=== PATIENT | male | born 1950 | race Caucasian/White ===

== ENCOUNTER 2018-06-02 09:09 | Inpatient (IN) | payer MEDICARE, MEDICAID ==
[~2018-06-02] VITALS: Ht 193 cm; Wt 105.7 kg
--- NOTE | 2018-06-02 09:40 | NUR ---
PT PRESENTED TO ED FROM [facility] FOR HYPERTENSION. PT STATES HE WAS AT [facility] ON 05/30 AND HAS BEEN THERE SINCE THEN. PT STILL WITH HIGH BLOOD PRESSURE. PT A&OX4. PT PLACED ON BP AND CONT. PULSE OXIMETER. ASSESSEMT COMPLETED. AWAITING MD.
[2018-06-02] MEDS ORDERED: ALBUTEROL/IPRATROPIUM 2.5MG/0.5MG, 3 ML NPPB ONE (10:00)
[2018-06-02] MEDS ORDERED: ALBUTEROL/IPRATROPIUM 2.5MG/0.5MG, 3 ML ONE (10:11)
[2018-06-02 10:59] LABS: BASOPHILS # (AUTO) 0.02 x10^3/uL (0-0.1); BASOPHILS % (AUTO) 0 % (0-1); EOSINOPHILS # (AUTO) 0.09 x10^3/uL (0-0.4); EOSINOPHILS % (AUTO) 1 % (1-7); LYMPHOCYTES # (AUTO) 1.41 x10^3/uL (1-3.4); LYMPHOCYTES % (AUTO) 17 % (22-44); MD NO; MEAN CORPUSCULAR HEMOGLOBIN 32.3 pg (27.5-34.5); MEAN CORPUSCULAR HGB CONC 32.3 g/dL (33.2-36.2); MEAN CORPUSCULAR VOLUME 100.2 fL (81-97); MEAN PLATELET VOLUME 8.2 fL (7.4-10.4); MONOCYTES % (AUTO) 7 % (2-9); NEUTROPHILS # (AUTO) 6.05 x10^3/uL (1.8-6.8); NEUTROPHILS % (AUTO) 74 % (42-75); PLATELET COUNT 199 x10^3/uL (130-400); RED BLOOD COUNT 4.72 x10^6/uL (4.38-5.82); RED CELL DISTRIBUTION WIDTH 15.5 % (9.4-14.8)
--- NOTE | 2018-06-02 11:00 | NUR ---
pt awaiting further test results.
[2018-06-02 11:10] LABS: ALBUMIN 3.3 g/dL (3.4-5.0); CALCIUM 9.1 mg/dL (8.5-10.1); CREATININE 0.73 mg/dL (0.7-1.3)
[2018-06-02 11:17] LABS: ANION GAP 2 mmol/L (5-15); CHLORIDE 106 mmol/L (98-107)
--- NOTE | 2018-06-02 12:19 | NUR ---
TASK RN: PT FAILED RA TRIAL, SPO2 84%. NO RESPIRATORY DISTRESS NOTED. ERP AWARE. POC IS ADMIT. IV ESTABLISHED. PT CHANGED TO GOWN. AWAITING ADMIT ORDERS. Addendum: 06/02/18 at 1233 by LWEGENER DISCUSSED NEED FOR BC WITH ERP. NO BC PER ERP.
[2018-06-02] MEDS ORDERED: CEFTRIAXONE PMX 1GM/50ML 50 ML ONE (12:23)
[2018-06-02] MEDS ORDERED: SODIUM CHLORIDE FLUSH 10ML SYR IVF PRN (12:30)
[2018-06-02] MEDS ORDERED: AZITHROMYCIN 500 MG TABLET PO ONE (12:30)
[2018-06-02] MEDS ORDERED: CEFTRIAXONE PMX 1GM/50ML 50 ML IVPB ONE (12:30)
[2018-06-02] MEDS ORDERED: CLON0.1T22 PO (12:49)
[2018-06-02] MEDS ORDERED: DIAZ10TA PO (12:49)
[2018-06-02] MEDS ORDERED: THIA100T27 PO (12:50)
[2018-06-02] MEDS ORDERED: FOLI-17 PO (12:50)
--- NOTE | 2018-06-02 12:51 | NUR ---
HOSPITALIST AT BEDSIDE. PT GIVEN CRACKERS AND JUICE. MEAL TRAY ORDERED. PER HOSPITALIST, BLOOD CULTURES DO NOT NEED TO BE ORDERED. ANTIBIOTICS HUNG PER MD ORDER
[2018-06-02] MEDS ORDERED: BISACODYL 10 MG SUPP PR PRN (13:00)
[2018-06-02] MEDS ORDERED: POLYETHYLENE GLYCOL 17 GM PACKET PO PRN (13:00)
[2018-06-02] MEDS ORDERED: KETOROLAC 30 MG/1 ML IV PRN (13:00)
[2018-06-02] MEDS ORDERED: ENALAPRILAT 1.25 MG/ML, 2ML IVPush PRN (13:00)
[2018-06-02] MEDS ORDERED: ONDANSETRON 2MG/ML, 2ML IVPush PRN (13:00)
[2018-06-02] MEDS ORDERED: DOCUSATE 100 MG CAPSULE PO PRN (13:00)
[2018-06-02] MEDS ORDERED: ACETAMINOPHEN 325 MG TABLET PO PRN (13:00)
--- NOTE | 2018-06-02 13:01 | NUR ---
report given to adán
[2018-06-02] MEDS ORDERED: AZITHROMYCIN 250 MG TABLET ONE (13:05)
[2018-06-02 13:20] VITALS: BP 122/68
[2018-06-02] MEDS ORDERED: ALBUTEROL/IPRATROPIUM 2.5MG/0.5MG, 3 ML NPPB PRN (14:00)
[2018-06-02] MEDS: DOXYCYCLINE 100 MG in DEXTROSE 5% 250 ML IV SCH (14:29)
[2018-06-02] MEDS: NICOTINE 21 MG/24 HR PATCH.TD24 TD SCH (14:29)
[2018-06-02] MEDS: methylPREDNISolone SOD SUCC 125 MG/2 ML IVPush SCH ×2 (14:29→20:50)
[2018-06-02] MEDS: ENOXAPARIN 40 MG/0.4 ML SQ SCH (14:29)
[2018-06-02 14:50] VITALS: BP 146/83
[2018-06-02] MEDS: ALBUTEROL/IPRATROPIUM 2.5MG/0.5MG, 3 ML NPPB SCH ×2 (14:54→20:00)
[2018-06-02] MEDS ORDERED: OMNIPAQUE 350 MG/ML, 75ML BOTTLE ONE (16:41)
[2018-06-02] MEDS: BACLOFEN 10 MG TABLET PO SCH ×2 (17:00→20:50)
[2018-06-02] MEDS ORDERED: NICO-487 TD (17:40)
[2018-06-02 19:21] VITALS: BP 135/76
[2018-06-02] MEDS: GUAIFENESIN ER 600 MG TABLET PO SCH (20:50)
[2018-06-02] MEDS: LORazepam 1MG TABLET PO PRN (20:50)
[2018-06-02] MEDS: SODIUM CHLORIDE FLUSH 10ML SYR IVF SCH (20:50)
[2018-06-03] MEDS: DOXYCYCLINE 100 MG in DEXTROSE 5% 250 ML IV SCH ×2 (01:15→14:35)
[2018-06-03 02:18] VITALS: BP 130/70
[2018-06-03] MEDS: methylPREDNISolone SOD SUCC 125 MG/2 ML IVPush SCH ×4 (02:54→20:17)
[2018-06-03 05:08] LABS: BASOPHILS # (AUTO) 0.01 x10^3/uL (0-0.1); BASOPHILS % (AUTO) 0 % (0-1); EOSINOPHILS % (AUTO) 0 % (1-7); LYMPHOCYTES # (AUTO) 0.54 x10^3/uL (1-3.4); LYMPHOCYTES % (AUTO) 10 % (22-44); MD NO; MEAN CORPUSCULAR HEMOGLOBIN 33.3 pg (27.5-34.5); MEAN CORPUSCULAR HGB CONC 33.3 g/dL (33.2-36.2); MEAN CORPUSCULAR VOLUME 100.2 fL (81-97); MEAN PLATELET VOLUME 8.7 fL (7.4-10.4); MONOCYTES # (AUTO) 0.08 x10^3/uL (0.2-0.8); MONOCYTES % (AUTO) 2 % (2-9); NEUTROPHILS # (AUTO) 4.68 x10^3/uL (1.8-6.8); NEUTROPHILS % (AUTO) 88 % (42-75); PLATELET COUNT 169 x10^3/uL (130-400); RED CELL DISTRIBUTION WIDTH 14.7 % (9.4-14.8)
[2018-06-03 05:13] LABS: ANION GAP 4 mmol/L (5-15); CALCIUM 8.2 mg/dL (8.5-10.1); CHLORIDE 105 mmol/L (98-107); CREATININE 0.64 mg/dL (0.7-1.3)
[2018-06-03] MEDS: ALBUTEROL/IPRATROPIUM 2.5MG/0.5MG, 3 ML NPPB SCH ×4 (07:00→20:00)
[2018-06-03 07:25] VITALS: BP 170/91
[2018-06-03] MEDS: LORazepam 1MG TABLET PO PRN (08:28)
[2018-06-03] MEDS: FOLIC ACID 1 MG TABLET PO SCH (08:28)
[2018-06-03] MEDS: BACLOFEN 10 MG TABLET PO SCH ×3 (08:29→20:17)
[2018-06-03] MEDS: GUAIFENESIN ER 600 MG TABLET PO SCH ×2 (08:29→20:17)
[2018-06-03] MEDS: THIAMINE 100MG TABLET PO SCH (08:29)
[2018-06-03] MEDS: SODIUM CHLORIDE FLUSH 10ML SYR IVF SCH ×2 (08:30→21:00)
[2018-06-03] MEDS: CEFTRIAXONE PMX 1GM/50ML 50 ML IV SCH (14:25)
[2018-06-03] MEDS: ENOXAPARIN 40 MG/0.4 ML SQ SCH (14:25)
[2018-06-03] MEDS: NICOTINE 21 MG/24 HR PATCH.TD24 TD SCH (14:30)
[2018-06-03 14:32] VITALS: BP 135/79
[2018-06-03 19:32] VITALS: BP 125/63
[2018-06-04] MEDS: methylPREDNISolone SOD SUCC 125 MG/2 ML IVPush SCH ×2 (01:02→09:19)
[2018-06-04] MEDS: DOXYCYCLINE 100 MG in DEXTROSE 5% 250 ML IV SCH ×2 (01:02→13:24)
[2018-06-04 01:44] VITALS: BP 144/81
[2018-06-04] MEDS: ALBUTEROL/IPRATROPIUM 2.5MG/0.5MG, 3 ML NPPB SCH ×4 (07:13→20:32)
[2018-06-04 07:50] VITALS: BP 141/81
[2018-06-04] MEDS: GUAIFENESIN ER 600 MG TABLET PO SCH ×2 (09:19→20:35)
[2018-06-04] MEDS: THIAMINE 100MG TABLET PO SCH (09:19)
[2018-06-04] MEDS: BACLOFEN 10 MG TABLET PO SCH ×3 (09:19→20:35)
[2018-06-04] MEDS: FOLIC ACID 1 MG TABLET PO SCH (09:19)
[2018-06-04] MEDS: SODIUM CHLORIDE FLUSH 10ML SYR IVF SCH ×2 (09:19→20:57)
[2018-06-04] MEDS: CEFTRIAXONE PMX 1GM/50ML 50 ML IV SCH (12:41)
[2018-06-04 13:24] VITALS: BP 145/75
[2018-06-04] MEDS: ENOXAPARIN 40 MG/0.4 ML SQ SCH (13:24)
[2018-06-04] MEDS: NICOTINE 21 MG/24 HR PATCH.TD24 TD SCH (13:25)
[2018-06-04 19:35] VITALS: BP 156/88
[2018-06-05] MEDS: DOXYCYCLINE 100 MG in DEXTROSE 5% 250 ML IV SCH (00:31)
[2018-06-05 01:15] VITALS: BP 169/98
[2018-06-05] MEDS: ALBUTEROL/IPRATROPIUM 2.5MG/0.5MG, 3 ML NPPB SCH (06:48)
[2018-06-05 07:29] VITALS: BP 149/101
[2018-06-05] MEDS ORDERED: PRED20TA PO (08:13)
[2018-06-05] MEDS ORDERED: CEFD300C37 PO (08:13)
[2018-06-05] MEDS ORDERED: LORA-446 PO (08:13)
[2018-06-05] MEDS ORDERED: BACL-19 PO (08:13)
[2018-06-05] MEDS ORDERED: DOXY100T PO (08:13)
[2018-06-05] MEDS: BACLOFEN 10 MG TABLET PO SCH (08:26)
[2018-06-05] MEDS: GUAIFENESIN ER 600 MG TABLET PO SCH (08:26)
[2018-06-05] MEDS: THIAMINE 100MG TABLET PO SCH (08:26)
[2018-06-05] MEDS: FOLIC ACID 1 MG TABLET PO SCH (08:26)
== END 2018-06-05 11:04 | DRG 177 ==
LOC: ED 11:13 → EDIP 12:18 → 3NW 12:57
PROVIDERS: ADMIT Hospitalist; ATTEND Hospitalist
DX: J15.6 Pneumonia due to other Gram-negative bacteria (principal); J96.01 Acute respiratory failure with hypoxia; E44.1 Mild protein-calorie malnutrition; J44.0 Chronic obstructive pulmonary disease with (acute) lower respiratory infection; E16.2 Hypoglycemia, unspecified; F10.10 Alcohol abuse, uncomplicated; F17.210 Nicotine dependence, cigarettes, uncomplicated; I10 Essential (primary) hypertension; Z90.49 Acquired absence of other specified parts of digestive tract; Z68.28 Body mass index [BMI] 28.0-28.9, adult
CPT/HCPCS: 36415; 71046; 71260; 80048; 82040; 83605; 85025; 87070; 87205; 94640; G0378; J0696; J1650; J7060; J7620; Q9967; J2930; J7512

== ENCOUNTER 2018-06-18 13:54 | Inpatient (IN) | payer MEDICARE, MEDICAID ==
[~2018-06-18] VITALS: Ht 193 cm; Wt 99.8 kg
[~2018-06-18 13:54] MED LIST: BACL-19 PO; CEFD300C37 PO; CLON0.1T22 PO; DIAZ10TA PO; DOXY100T PO; FOLI-17 PO; LORA-446 PO; NICO-487 TD; PRED20TA PO; THIA100T27 PO
[2018-06-18] MEDS ORDERED: ALBUTEROL/IPRATROPIUM 2.5MG/0.5MG, 3 ML NPPB SCH (14:30)
[2018-06-18] MEDS ORDERED: ALBUTEROL/IPRATROPIUM 2.5MG/0.5MG, 3 ML ONE (14:52)
--- NOTE | 2018-06-18 15:18 | NUR ---
INCREASED LOOSE NON-PRODUCTIVE COUGH AND SOB X 3 DAYS. PT PRESENTS PURSE LIP BREATHING 02 4L NC W/ SP02 = 94[facility]. PT VSS, BILAT FINGERS CYANOTIC WITH CAP REFILL OF 3 SEC. PIV EST AND POC DISCUSSED. CALL LIGHT W/I REACH. FOLLOWING RESP. TREATMENT PT APPEARS MORE COMFORTABLE AND LESS SOB, CONT. WITH INTERMITTANT PURSE LIP BREATING.
[2018-06-18 15:20] LABS: BASOPHILS # (AUTO) 0.04 x10^3/uL (0-0.1); BASOPHILS % (AUTO) 1 % (0-1); EOSINOPHILS # (AUTO) 0.12 x10^3/uL (0-0.4); EOSINOPHILS % (AUTO) 1 % (1-7); LYMPHOCYTES # (AUTO) 1.71 x10^3/uL (1-3.4); LYMPHOCYTES % (AUTO) 19 % (22-44); MD NO; MEAN CORPUSCULAR HEMOGLOBIN 32.4 pg (27.5-34.5); MEAN CORPUSCULAR HGB CONC 33.1 g/dL (33.2-36.2); MEAN CORPUSCULAR VOLUME 97.8 fL (81-97); MEAN PLATELET VOLUME 8.9 fL (7.4-10.4); MONOCYTES % (AUTO) 9 % (2-9); NEUTROPHILS # (AUTO) 6.41 x10^3/uL (1.8-6.8); NEUTROPHILS % (AUTO) 71 % (42-75); PLATELET COUNT 191 x10^3/uL (130-400); RED BLOOD COUNT 4.74 x10^6/uL (4.38-5.82); RED CELL DISTRIBUTION WIDTH 14.9 % (9.4-14.8)
[2018-06-18 15:28] LABS: ALANINE AMINOTRANSFERASE 39 U/L (12-78); ALBUMIN 3.6 g/dL (3.4-5.0); ANION GAP 5 mmol/L (5-15); CALCIUM 8.7 mg/dL (8.5-10.1); CHLORIDE 104 mmol/L (98-107); CREATININE 0.79 mg/dL (0.7-1.3)
[2018-06-18 15:33] LABS: ALKALINE PHOSPHATASE 67 U/L (45-117); BILIRUBIN,TOTAL 0.5 mg/dL (0.2-1.0)
[2018-06-18] MEDS ORDERED: ONDANSETRON 2MG/ML, 2ML IVPush PRN (17:00)
[2018-06-18] MEDS ORDERED: ACETAMINOPHEN 325 MG TABLET PO PRN (17:00)
[2018-06-18] MEDS ORDERED: ONDANSETRON ODT 4 MG PO PRN (17:00)
--- NOTE | 2018-06-18 17:02 | NUR ---
2 REGULAR DIET TRAY'S PROVIDED PER PT REQUEST
[2018-06-18] MEDS ORDERED: ENOXAPARIN 40 MG/0.4 ML ONE (18:29)
[2018-06-18] MEDS ORDERED: methylPREDNISolone SOD SUCC 125 MG/2 ML ONE (18:29)
[2018-06-18] MEDS ORDERED: ALBUTEROL/IPRATROPIUM 2.5MG/0.5MG, 3 ML NPPB PRN (18:30)
[2018-06-18] MEDS: methylPREDNISolone SOD SUCC 125 MG/2 ML IVPush SCH (18:35)
[2018-06-18] MEDS: ENOXAPARIN 40 MG/0.4 ML SQ SCH (18:37)
[2018-06-18 19:08] VITALS: BP 130/88
--- NOTE | 2018-06-18 19:13 | NUR ---
LATE ENTRY FOR 1740 PT CONSUMED 100% OF MOTH MEAL TRAYS.
[2018-06-18 20:00] VITALS: BP 130/88
[2018-06-18] MEDS: ALBUTEROL/IPRATROPIUM 2.5MG/0.5MG, 3 ML NPPB SCH (20:22)
[2018-06-18 20:31] VITALS: BP 130/88
[2018-06-19 00:34] VITALS: BP 107/74
[2018-06-19] MEDS: methylPREDNISolone SOD SUCC 125 MG/2 ML IVPush SCH ×3 (02:46→18:18)
[2018-06-19 05:15] LABS: ALANINE AMINOTRANSFERASE 32 U/L (12-78); ALBUMIN 3.1 g/dL (3.4-5.0); ANION GAP 5 mmol/L (5-15); CALCIUM 8.2 mg/dL (8.5-10.1); CHLORIDE 107 mmol/L (98-107)
[2018-06-19 05:18] LABS: ALKALINE PHOSPHATASE 61 U/L (45-117); BASOPHILS # (AUTO) 0.01 x10^3/uL (0-0.1); BASOPHILS % (AUTO) 0 % (0-1); BILIRUBIN,TOTAL 0.4 mg/dL (0.2-1.0); CREATININE 0.93 mg/dL (0.7-1.3); EOSINOPHILS % (AUTO) 0 % (1-7); LYMPHOCYTES # (AUTO) 0.46 x10^3/uL (1-3.4); LYMPHOCYTES % (AUTO) 9 % (22-44); MD NO; MEAN CORPUSCULAR HEMOGLOBIN 32.6 pg (27.5-34.5); MEAN CORPUSCULAR HGB CONC 33.1 g/dL (33.2-36.2); MEAN CORPUSCULAR VOLUME 98.3 fL (81-97); MEAN PLATELET VOLUME 9.5 fL (7.4-10.4); MONOCYTES # (AUTO) 0.06 x10^3/uL (0.2-0.8); MONOCYTES % (AUTO) 1 % (2-9); NEUTROPHILS # (AUTO) 4.64 x10^3/uL (1.8-6.8); NEUTROPHILS % (AUTO) 90 % (42-75); PLATELET COUNT 180 x10^3/uL (130-400); RED BLOOD COUNT 4.36 x10^6/uL (4.38-5.82); RED CELL DISTRIBUTION WIDTH 14.8 % (9.4-14.8); TOTAL PROTEIN 6.5 g/dL (6.4-8.2)
[2018-06-19] MEDS: ALBUTEROL/IPRATROPIUM 2.5MG/0.5MG, 3 ML NPPB SCH ×4 (07:10→19:31)
[2018-06-19 08:00] VITALS: BP 126/73
[2018-06-19] MEDS: THIAMINE 100MG TABLET PO SCH (08:29)
[2018-06-19] MEDS: FOLIC ACID 1 MG TABLET PO SCH (08:29)
[2018-06-19 15:50] VITALS: BP 122/71
[2018-06-19] MEDS: ENOXAPARIN 40 MG/0.4 ML SQ SCH (18:18)
[2018-06-19 19:50] VITALS: BP 146/78
[2018-06-20 00:42] VITALS: BP 146/86
[2018-06-20] MEDS: ALBUTEROL/IPRATROPIUM 2.5MG/0.5MG, 3 ML NPPB SCH ×3 (06:28→14:50)
[2018-06-20] MEDS ORDERED: methylPREDNISolone SOD SUCC 125 MG/2 ML IVPush SCH (06:30)
[2018-06-20 07:29] VITALS: BP 137/83
[2018-06-20] MEDS: FOLIC ACID 1 MG TABLET PO SCH (07:57)
[2018-06-20] MEDS: THIAMINE 100MG TABLET PO SCH (07:58)
[2018-06-20] MEDS ORDERED: NICO-487 TD (10:07)
[2018-06-20] MEDS ORDERED: PRED20TA PO ×2 (12:29)
[2018-06-20] MEDS ORDERED: [UNRECOGNIZED DRUG - CODE] PO ×2 (12:29)
== END 2018-06-20 18:01 | DRG 189 ==
LOC: ED 16:13 → EDIP 16:18 → ED 16:29 → 3NE 17:30
PROVIDERS: ADMIT Internal Medicine; ATTEND Internal Medicine
DX: J96.01 Acute respiratory failure with hypoxia (principal); J44.1 Chronic obstructive pulmonary disease with (acute) exacerbation; Z88.0 Allergy status to penicillin; F10.10 Alcohol abuse, uncomplicated; Y90.9 Presence of alcohol in blood, level not specified; I10 Essential (primary) hypertension; F17.200 Nicotine dependence, unspecified, uncomplicated; Z80.7 Family history of other malignant neoplasms of lymphoid, hematopoietic and related tissues; Z87.01 Personal history of pneumonia (recurrent); Z90.49 Acquired absence of other specified parts of digestive tract; R91.8 Other nonspecific abnormal finding of lung field
CPT/HCPCS: 36415; 71046; 80053; 83605; 83735; 83880; 84100; 84145; 85025; 87070; 87205; 93005; 94640; 96372; 96374; 99285; G0378; J1650; J7620; J2930; J7512

== ENCOUNTER 2018-06-21 09:41 | Inpatient (IN) | payer MEDICARE, MEDICAID ==
[~2018-06-21] VITALS: Ht 193 cm; Wt 106.9 kg
[~2018-06-21 09:41] MED LIST changes: +[UNRECOGNIZED DRUG - CODE] PO
--- NOTE | 2018-06-21 10:19 | NUR ---
PT. IS A & O X 4 WITH C/O FEELING SOB. PT. IS LEAVING [facility], WHERE HE IS BEING TREATED FOR DRINKING, ETOH AND GAMBLING WELL HEALTH ISSUES. PT. RETURNS TODAY FOR FURTHER TREATMENT OF SOB. 12 LEAD EKG WAS DONE. IV ACCESS WAS ESTABLISHED. CP MONITOR IS IN PLACE. PT.'S HOB IS ELEVATED GREATER THAN 30 DEGREES. PT. IS RESTING WITH THE SIDERAILS UP X 2 AND THE CALL LIGHT IN PLACE.
[2018-06-21] MEDS ORDERED: AZITHROMYCIN 250 MG TABLET ONE (10:29)
[2018-06-21] MEDS ORDERED: ACETAMINOPHEN 325 MG TABLET ONE (10:29)
[2018-06-21] MEDS ORDERED: POLYTRIM OPHTH 10ML RIGHTEYE ONE (10:30)
[2018-06-21] MEDS ORDERED: IPRATROPIUM 0.5 MG/2.5 ML INHA NPPB ONE (10:30)
[2018-06-21] MEDS ORDERED: ALBUTEROL SULFATE 2.5 MG/3 ML NPPB SCH (10:30)
[2018-06-21] MEDS ORDERED: AZITHROMYCIN 250 MG TABLET PO ONE (10:30)
[2018-06-21] MEDS ORDERED: ACETAMINOPHEN 325 MG TABLET PO ONE (10:30)
[2018-06-21] MEDS ORDERED: IPRATROPIUM 0.5 MG/2.5 ML INHA ONE (10:33)
[2018-06-21] MEDS ORDERED: ALBUTEROL SULFATE 2.5MG/0.5ML ONE (10:33)
[2018-06-21 10:38] LABS: BASOPHILS % (AUTO) 0 % (0-1); EOSINOPHILS # (AUTO) 0.01 x10^3/uL (0-0.4); EOSINOPHILS % (AUTO) 0 % (1-7); LYMPHOCYTES # (AUTO) 0.78 x10^3/uL (1-3.4); LYMPHOCYTES % (AUTO) 7 % (22-44); MD NO; MEAN CORPUSCULAR HEMOGLOBIN 32.2 pg (27.5-34.5); MEAN CORPUSCULAR HGB CONC 32.9 g/dL (33.2-36.2); MEAN CORPUSCULAR VOLUME 97.8 fL (81-97); MEAN PLATELET VOLUME 8.6 fL (7.4-10.4); MONOCYTES # (AUTO) 0.91 x10^3/uL (0.2-0.8); MONOCYTES % (AUTO) 8 % (2-9); NEUTROPHILS # (AUTO) 9.67 x10^3/uL (1.8-6.8); NEUTROPHILS % (AUTO) 85 % (42-75); PLATELET COUNT 188 x10^3/uL (130-400); RED BLOOD COUNT 4.45 x10^6/uL (4.38-5.82); RED CELL DISTRIBUTION WIDTH 14.9 % (9.4-14.8)
[2018-06-21 10:42] LABS: ALBUMIN 3.5 g/dL (3.4-5.0); ANION GAP 1 mmol/L (5-15); CALCIUM 8.3 mg/dL (8.5-10.1); CHLORIDE 104 mmol/L (98-107); CREATININE 0.74 mg/dL (0.7-1.3)
[2018-06-21 10:46] LABS: TROPONIN I < 0.015 ng/mL (0.000-0.045)
--- NOTE | 2018-06-21 11:00 | NUR ---
PT. TOLERATED HIS BREATHING TX. MEDS GIVEN. PT. REMAINS MONITORED.
[2018-06-21 11:10] LABS: RAPID INFLUENZA A Negative (Negative); RAPID INFLUENZA B Negative (Negative)
--- NOTE | 2018-06-21 11:58 | NUR ---
RT AT THE BEDSIDE GIVING THE PT ANOTHER BREATHING TREATMENT. NO CHANGES.
--- NOTE | 2018-06-21 13:15 | NUR ---
PT. IS EATING LUNCH. NO CONCERNS. PT. REMAINS MONITORED.
[2018-06-21] MEDS ORDERED: LABETALOL 5MG/ML, 20ML IVPush PRN (13:30)
[2018-06-21] MEDS ORDERED: POLYETHYLENE GLYCOL 17 GM PACKET PO PRN (13:30)
[2018-06-21] MEDS ORDERED: ONDANSETRON 2MG/ML, 2ML IVPush PRN (13:30)
[2018-06-21] MEDS ORDERED: ONDANSETRON ODT 4 MG PO PRN (13:30)
--- NOTE | 2018-06-21 13:40 | NUR ---
REPORT WAS CALLED TO JONAH MONDRAGON. PT. IS READY FOR TRANSPORT.
[2018-06-21] MEDS ORDERED: ALBUTEROL SULFATE 2.5 MG/3 ML NPPB PRN (14:30)
[2018-06-21 14:49] VITALS: BP 134/86
[2018-06-21] MEDS: methylPREDNISolone SOD SUCC 125 MG/2 ML IVPush SCH ×2 (15:26→20:36)
[2018-06-21] MEDS: GUAIFENESIN 200 MG TABLET PO SCH ×2 (15:27→20:37)
[2018-06-21] MEDS: ENOXAPARIN 40 MG/0.4 ML SQ SCH (15:27)
[2018-06-21 19:34] VITALS: BP 126/76
[2018-06-22 01:21] VITALS: BP 138/96
[2018-06-22] MEDS: methylPREDNISolone SOD SUCC 125 MG/2 ML IVPush SCH ×4 (02:39→20:27)
[2018-06-22 05:48] LABS: ALANINE AMINOTRANSFERASE 32 U/L (12-78); ALBUMIN 3.2 g/dL (3.4-5.0); ANION GAP 4 mmol/L (5-15); CALCIUM 8.2 mg/dL (8.5-10.1); CHLORIDE 104 mmol/L (98-107); CREATININE 0.61 mg/dL (0.7-1.3)
[2018-06-22 05:52] LABS: BASOPHILS % (AUTO) 0 % (0-1); EOSINOPHILS % (AUTO) 0 % (1-7); LYMPHOCYTES # (AUTO) 0.41 x10^3/uL (1-3.4); LYMPHOCYTES % (AUTO) 8 % (22-44); MD NO; MEAN CORPUSCULAR HEMOGLOBIN 32.7 pg (27.5-34.5); MEAN CORPUSCULAR HGB CONC 33.5 g/dL (33.2-36.2); MEAN CORPUSCULAR VOLUME 97.6 fL (81-97); MEAN PLATELET VOLUME 8.9 fL (7.4-10.4); MONOCYTES # (AUTO) 0.07 x10^3/uL (0.2-0.8); MONOCYTES % (AUTO) 1 % (2-9); NEUTROPHILS # (AUTO) 4.67 x10^3/uL (1.8-6.8); NEUTROPHILS % (AUTO) 91 % (42-75); PLATELET COUNT 172 x10^3/uL (130-400); RED BLOOD COUNT 4.18 x10^6/uL (4.38-5.82); RED CELL DISTRIBUTION WIDTH 15.1 % (9.4-14.8)
[2018-06-22 05:58] LABS: ALKALINE PHOSPHATASE 58 U/L (45-117); BILIRUBIN,TOTAL 0.3 mg/dL (0.2-1.0); THYROID STIMULATING HORMONE 0.305 mIU/L (0.358-3.740); TOTAL PROTEIN 6.2 g/dL (6.4-8.2)
[2018-06-22] MEDS: GUAIFENESIN 200 MG TABLET PO SCH ×4 (06:39→20:28)
[2018-06-22 06:51] VITALS: BP 149/96
[2018-06-22] MEDS: PANTOPRAZOLE 40 MG IV IVPush SCH (08:17)
[2018-06-22] MEDS: SENNA/DOCUSATE TABLET PO SCH (08:18)
[2018-06-22] MEDS: FOLIC ACID 1 MG TABLET PO SCH (08:18)
[2018-06-22] MEDS: ENOXAPARIN 40 MG/0.4 ML SQ SCH (13:36)
[2018-06-22 16:13] VITALS: BP 146/96
[2018-06-22 18:42] VITALS: BP 145/94
[2018-06-23 00:08] VITALS: BP 150/86
[2018-06-23] MEDS: methylPREDNISolone SOD SUCC 125 MG/2 ML IVPush SCH ×4 (02:22→20:47)
[2018-06-23 05:20] LABS: ALBUMIN 2.9 g/dL (3.4-5.0); ANION GAP 3 mmol/L (5-15); CALCIUM 8.1 mg/dL (8.5-10.1); CHLORIDE 104 mmol/L (98-107)
[2018-06-23 05:25] LABS: BASOPHILS % (AUTO) 0 % (0-1); EOSINOPHILS % (AUTO) 0 % (1-7); LYMPHOCYTES # (AUTO) 0.42 x10^3/uL (1-3.4); LYMPHOCYTES % (AUTO) 7 % (22-44); MD NO; MEAN CORPUSCULAR HEMOGLOBIN 32.5 pg (27.5-34.5); MEAN CORPUSCULAR HGB CONC 33.1 g/dL (33.2-36.2); MEAN CORPUSCULAR VOLUME 98.2 fL (81-97); MONOCYTES # (AUTO) 0.18 x10^3/uL (0.2-0.8); MONOCYTES % (AUTO) 3 % (2-9); NEUTROPHILS # (AUTO) 5.89 x10^3/uL (1.8-6.8); NEUTROPHILS % (AUTO) 91 % (42-75); PLATELET COUNT 195 x10^3/uL (130-400); RED BLOOD COUNT 4.18 x10^6/uL (4.38-5.82); RED CELL DISTRIBUTION WIDTH 14.7 % (9.4-14.8)
[2018-06-23] MEDS: GUAIFENESIN 200 MG TABLET PO SCH ×4 (06:09→20:47)
[2018-06-23] MEDS: SENNA/DOCUSATE TABLET PO SCH (07:21)
[2018-06-23] MEDS: FOLIC ACID 1 MG TABLET PO SCH (07:21)
[2018-06-23] MEDS: PANTOPRAZOLE 40 MG IV IVPush SCH (07:21)
[2018-06-23 07:28] VITALS: BP 164/96
[2018-06-23] MEDS ORDERED: FOLIC ACID 1 MG TABLET PO SCH (09:30)
[2018-06-23] MEDS: THIAMINE 100MG TABLET PO SCH (11:14)
[2018-06-23 13:04] VITALS: BP 167/94
[2018-06-23] MEDS: ENOXAPARIN 40 MG/0.4 ML SQ SCH (13:09)
[2018-06-23] MEDS: ALBUTEROL SULFATE 2.5 MG/3 ML NPPB SCH ×3 (14:00→21:30)
[2018-06-23 19:27] VITALS: BP 163/88
[2018-06-24] MEDS: methylPREDNISolone SOD SUCC 125 MG/2 ML IVPush SCH ×2 (01:12→07:15)
[2018-06-24 01:15] VITALS: BP 157/92
[2018-06-24] MEDS: ALBUTEROL SULFATE 2.5 MG/3 ML NPPB SCH ×3 (01:23→10:24)
[2018-06-24] MEDS: GUAIFENESIN 200 MG TABLET PO SCH ×2 (04:36→10:37)
[2018-06-24 05:01] LABS: MEAN CORPUSCULAR HEMOGLOBIN 32.4 pg (27.5-34.5); MEAN CORPUSCULAR HGB CONC 33.4 g/dL (33.2-36.2); MEAN CORPUSCULAR VOLUME 97.1 fL (81-97); MEAN PLATELET VOLUME 8.9 fL (7.4-10.4); PLATELET COUNT 197 x10^3/uL (130-400); RED BLOOD COUNT 4.25 x10^6/uL (4.38-5.82); RED CELL DISTRIBUTION WIDTH 14.5 % (9.4-14.8)
[2018-06-24 05:10] LABS: ALBUMIN 2.9 g/dL (3.4-5.0); ANION GAP 3 mmol/L (5-15); CHLORIDE 103 mmol/L (98-107)
[2018-06-24 05:15] LABS: ALANINE AMINOTRANSFERASE 34 U/L (12-78); ALKALINE PHOSPHATASE 73 U/L (45-117); BILIRUBIN,TOTAL 0.2 mg/dL (0.2-1.0); CREATININE 0.87 mg/dL (0.7-1.3); TOTAL PROTEIN 5.7 g/dL (6.4-8.2)
[2018-06-24 05:57] LABS: BASOPHILS % (AUTO) 0 % (0-1); EOSINOPHILS % (AUTO) 0 % (1-7); LYMPHOCYTES # (AUTO) 0.16 x10^3/uL (1-3.4); LYMPHOCYTES % (AUTO) 1 % (22-44); MONOCYTES # (AUTO) 0.28 x10^3/uL (0.2-0.8); MONOCYTES % (AUTO) 2 % (2-9); NEUTROPHILS # (AUTO) 12.04 x10^3/uL (1.8-6.8); NEUTROPHILS % (AUTO) 97 % (42-75)
[2018-06-24 05:58] LABS: MD SCAN
[2018-06-24 07:13] VITALS: BP 168/97
[2018-06-24] MEDS: THIAMINE 100MG TABLET PO SCH (07:15)
[2018-06-24] MEDS: SENNA/DOCUSATE TABLET PO SCH (07:15)
[2018-06-24] MEDS: FOLIC ACID 1 MG TABLET PO SCH (07:15)
[2018-06-24] MEDS ORDERED: PANTOPROZOLE 40MG TABLET PO SCH (07:30)
[2018-06-24] MEDS ORDERED: AMLODIPINE 5 MG TABLET PO SCH (10:00)
[2018-06-24] MEDS ORDERED: PRED10TA PO (10:51)
[2018-06-24] MEDS ORDERED: GUAI200T3 PO (10:51)
[2018-06-24] MEDS ORDERED: CEFTRIAXONE PMX 2GM/50ML 50 ML IV SCH (12:30)
[2018-06-24] MEDS ORDERED: DOXYCYCLINE 100MG TABLET PO SCH (12:30)
[2018-06-24] MEDS: ENOXAPARIN 40 MG/0.4 ML SQ SCH (12:46)
[2018-06-24] MEDS ORDERED: LEVOFLOXACIN 750 MG TABLET PO SCH (13:00)
== END 2018-06-24 14:00 | disposition left against medical advice (07) | DRG 189 ==
LOC: ED 10:25 → EDIP 11:31 → 4NOR 14:22
PROVIDERS: ADMIT Internal Medicine; ATTEND Internal Medicine
DX: J96.01 Acute respiratory failure with hypoxia (principal); J44.1 Chronic obstructive pulmonary disease with (acute) exacerbation; D72.829 Elevated white blood cell count, unspecified; D75.89 Other specified diseases of blood and blood-forming organs; F10.10 Alcohol abuse, uncomplicated; F17.200 Nicotine dependence, unspecified, uncomplicated; I10 Essential (primary) hypertension; J84.10 Pulmonary fibrosis, unspecified; Z59.0 Homelessness; Z80.7 Family history of other malignant neoplasms of lymphoid, hematopoietic and related tissues; Z87.01 Personal history of pneumonia (recurrent); Z53.21 Procedure and treatment not carried out due to patient leaving prior to being seen by health care provider
CPT/HCPCS: 36415; 71045; 80048; 80053; 82040; 83605; 83735; 84100; 84145; 84439; 84443; 84484; 85025; 87070; 87077; 87205; 87400; 93005; 94640; 99291; G0378; J1650; J7613; J7644; C9113; J2930; J7512

== ENCOUNTER 2018-10-25 14:16 | Inpatient (IN) | payer MEDICARE, MEDICAID ==
[~2018-10-25] VITALS: Ht 193 cm; Wt 109.8 kg
[~2018-10-25 14:16] MED LIST changes: +GUAI200T3 PO; +PRED10TA PO
--- NOTE | 2018-10-25 14:37 | NUR ---
Note juan in EDM - 10/25/18 at 1442 by JAYSON THIS IS A 68 Y/O MALE WITH C/O SOB AND INCREASED FATIGUE AT HOME. PT REPORTS THAT HE DOES NOT HAVE HOME 02 AND CHECKED HIS O2 AND IT WAS LOW. WDL HERE. PT REPORTS RECENT SMOKING AND DRINKING. PT VSS, PT HAS DIMINISHED BREATH SOUNDS, RRR AUSCULTATED OVER HEART. PT CONNECTED TO MONITORS AND CALL LIGHT IN REACH. AWAITING FURTHER ORDERS. PT DENIES CP/CHAMPION/OR N/V. PT RECENTLY HOMELESS WELL.
--- NOTE | 2018-10-25 14:42 | NUR ---
THIS IS A 68 Y/O MALE WITH C/O SOB AND INCREASED FATIGUE AT HOME. PT REPORTS THAT HE DOES NOT HAVE HOME 02 AND CHECKED HIS O2 AND IT WAS LOW. WDL HERE. PT REPORTS RECENT SMOKING AND DRINKING. PT VSS, PT HAS DIMINISHED BREATH SOUNDS, RRR AUSCULTATED OVER HEART. PT CONNECTED TO MONITORS AND CALL LIGHT IN REACH. AWAITING FURTHER ORDERS. PT DENIES CP/CHAMPION/OR N/V. PT RECENTLY HOMELESS WELL.
[2018-10-25] MEDS ORDERED: ALBUTEROL/IPRATROPIUM 2.5MG/0.5MG, 3 ML ONE ×2 (14:50→16:15)
[2018-10-25] MEDS ORDERED: ALBUTEROL/IPRATROPIUM 2.5MG/0.5MG, 3 ML NPPB PRN ×2 (15:00→17:30)
[2018-10-25] MEDS ORDERED: ALBUTEROL/IPRATROPIUM 2.5MG/0.5MG, 3 ML NEB ONE (15:00)
[2018-10-25] MEDS ORDERED: SODIUM CHLORIDE FLUSH 10ML SYR IVF ONE (15:00)
[2018-10-25 15:07] LABS: BASOPHILS % (AUTO) 0 % (0-1); EOSINOPHILS # (AUTO) 0.08 x10^3/uL (0-0.4); EOSINOPHILS % (AUTO) 1 % (1-7); LYMPHOCYTES # (AUTO) 1.56 x10^3/uL (1-3.4); LYMPHOCYTES % (AUTO) 28 % (22-44); MD NO; MEAN CORPUSCULAR HEMOGLOBIN 32.5 pg (27.5-34.5); MEAN CORPUSCULAR HGB CONC 32.6 g/dL (33.2-36.2); MEAN CORPUSCULAR VOLUME 99.5 fL (81-97); MEAN PLATELET VOLUME 8.6 fL (7.4-10.4); MONOCYTES # (AUTO) 0.53 x10^3/uL (0.2-0.8); MONOCYTES % (AUTO) 10 % (2-9); NEUTROPHILS # (AUTO) 3.35 x10^3/uL (1.8-6.8); NEUTROPHILS % (AUTO) 61 % (42-75); PLATELET COUNT 136 x10^3/uL (130-400); RED CELL DISTRIBUTION WIDTH 15.4 % (9.4-14.8)
[2018-10-25 15:15] LABS: ALANINE AMINOTRANSFERASE 74 U/L (12-78); ALBUMIN 3.4 g/dL (3.4-5.0); ANION GAP 9 mmol/L (5-15); CALCIUM 7.9 mg/dL (8.5-10.1); CHLORIDE 101 mmol/L (98-107); CREATININE 0.81 mg/dL (0.7-1.3)
[2018-10-25 15:19] LABS: ALKALINE PHOSPHATASE 84 U/L (45-117); BILIRUBIN,TOTAL 0.3 mg/dL (0.2-1.0); TOTAL PROTEIN 6.1 g/dL (6.4-8.2); TROPONIN I 0.028 ng/mL (0.000-0.045)
--- NOTE | 2018-10-25 15:32 | NUR ---
PT REMAINED HYPOXIC ON ROOM AIR TRIAL, PT UNABLE TO OXYGENATE. PT RECONNECTED TO O2.
--- NOTE | 2018-10-25 15:57 | NUR ---
MAT PLACED, MD AT BEDSIDE.
[2018-10-25] MEDS ORDERED: ALBUTEROL/IPRATROPIUM 2.5MG/0.5MG, 3 ML NPPB ONE (16:00)
[2018-10-25] MEDS ORDERED: SODIUM CHLORIDE FLUSH 10ML SYR IVF PRN (16:30)
[2018-10-25] MEDS ORDERED: ONDANSETRON 2MG/ML, 2ML IVPush PRN (17:30)
[2018-10-25] MEDS: GUAIFENESIN 200 MG TABLET PO SCH ×2 (17:30→20:25)
[2018-10-25] MEDS ORDERED: NICOTINE 14MG/24 HR PATCH.TD24 TD SCH (17:30)
[2018-10-25] MEDS ORDERED: LABETALOL 5 MG/ML SYRINGE IVPush PRN (17:30)
--- NOTE | 2018-10-25 17:43 | NUR ---
PT AT THIS TIME IS UNABLE TO RECALL MEDICATIONS HE TAKES AT HOME. PT RESTING IN BED AT THIS TIME.
--- NOTE | 2018-10-25 17:43 | NUR ---
REPORT TO RESHMA MONDRAGON, [phone]
[2018-10-25 19:05] VITALS: BP 160/80
[2018-10-25] MEDS: ALBUTEROL/IPRATROPIUM 2.5MG/0.5MG, 3 ML NPPB SCH ×2 (19:30→22:27)
[2018-10-25] MEDS ORDERED: ALBUTEROL/IPRATROPIUM 2.5MG/0.5MG, 3 ML NPPB SCH (20:00)
[2018-10-25] MEDS: methylPREDNISolone SOD SUCC 125 MG/2 ML IVPush SCH (20:24)
[2018-10-25] MEDS: CALCIUM CARBONATE 500 MG TAB.CHEW PO SCH (20:25)
[2018-10-25] MEDS: THIAMINE 100MG TABLET PO SCH (20:25)
[2018-10-25] MEDS: ENOXAPARIN 40 MG/0.4 ML SQ SCH (20:33)
[2018-10-26] MEDS: methylPREDNISolone SOD SUCC 125 MG/2 ML IVPush SCH ×4 (02:06→21:31)
[2018-10-26 02:09] VITALS: BP 125/71
[2018-10-26] MEDS: ALBUTEROL/IPRATROPIUM 2.5MG/0.5MG, 3 ML NPPB SCH ×6 (02:36→22:45)
[2018-10-26 06:12] LABS: MEAN CORPUSCULAR HEMOGLOBIN 31.6 pg (27.5-34.5); MEAN CORPUSCULAR HGB CONC 32.4 g/dL (33.2-36.2); MEAN CORPUSCULAR VOLUME 97.4 fL (81-97); MEAN PLATELET VOLUME 8.3 fL (7.4-10.4); PLATELET COUNT 118 x10^3/uL (130-400); RED BLOOD COUNT 4.95 x10^6/uL (4.38-5.82); RED CELL DISTRIBUTION WIDTH 15.5 % (9.4-14.8)
[2018-10-26 06:23] LABS: ALBUMIN 3.3 g/dL (3.4-5.0); ANION GAP 5 mmol/L (5-15); CALCIUM 8.4 mg/dL (8.5-10.1); CHLORIDE 103 mmol/L (98-107)
[2018-10-26 06:26] LABS: ALANINE AMINOTRANSFERASE 60 U/L (12-78); ALKALINE PHOSPHATASE 86 U/L (45-117); BILIRUBIN,TOTAL 0.6 mg/dL (0.2-1.0); CREATININE 0.93 mg/dL (0.7-1.3); TOTAL PROTEIN 5.8 g/dL (6.4-8.2)
[2018-10-26 06:34] LABS: BASOPHILS % (AUTO) 0 % (0-1); EOSINOPHILS % (AUTO) 0 % (1-7); LYMPHOCYTES # (AUTO) 0.21 x10^3/uL (1-3.4); LYMPHOCYTES % (AUTO) 8 % (22-44); MD NO; MONOCYTES # (AUTO) 0.05 x10^3/uL (0.2-0.8); MONOCYTES % (AUTO) 2 % (2-9); NEUTROPHILS # (AUTO) 2.37 x10^3/uL (1.8-6.8); NEUTROPHILS % (AUTO) 90 % (42-75)
[2018-10-26 08:07] VITALS: BP 163/91
[2018-10-26] MEDS: AZITHROMYCIN 500 MG TABLET PO SCH (09:19)
[2018-10-26] MEDS: CALCIUM CARBONATE 500 MG TAB.CHEW PO SCH ×2 (09:19→21:31)
[2018-10-26] MEDS: MULTIVITAMIN 1 TABLET PO SCH (09:19)
[2018-10-26] MEDS: THIAMINE 100MG TABLET PO SCH ×2 (09:19→21:31)
[2018-10-26] MEDS: FOLIC ACID 1 MG TABLET PO SCH (09:19)
[2018-10-26 11:36] LABS: TROPONIN I < 0.015 ng/mL (0.000-0.045)
[2018-10-26 13:19] VITALS: BP 125/65
[2018-10-26] MEDS ORDERED: OMNIPAQUE 350 MG/ML, 100ML BOTTLE ONE (15:11)
[2018-10-26 16:29] LABS: TROPONIN I < 0.015 ng/mL (0.000-0.045)
[2018-10-26] MEDS: ACETAMINOPHEN 325 MG TABLET PO PRN (17:44)
[2018-10-26] MEDS: FUROSEMIDE 20 MG TABLET PO SCH (17:44)
[2018-10-26 19:57] VITALS: BP 159/68
[2018-10-26 21:29] LABS: TROPONIN I 0.019 ng/mL (0.000-0.045)
[2018-10-26] MEDS: NICOTINE 21 MG/24 HR PATCH.TD24 TD SCH (21:30)
[2018-10-26] MEDS: ENOXAPARIN 40 MG/0.4 ML SQ SCH (21:31)
[2018-10-27] MEDS: ALBUTEROL/IPRATROPIUM 2.5MG/0.5MG, 3 ML NPPB SCH ×6 (03:00→22:40)
[2018-10-27] MEDS: methylPREDNISolone SOD SUCC 125 MG/2 ML IVPush SCH ×3 (03:18→21:08)
[2018-10-27 03:23] VITALS: BP 140/71
[2018-10-27 06:57] VITALS: BP 168/88
[2018-10-27] MEDS: ACETAMINOPHEN 325 MG TABLET PO PRN (07:42)
[2018-10-27] MEDS: AMOXICILLIN/CLAV 875-125MG TABLET PO SCH ×2 (07:43→21:08)
[2018-10-27] MEDS: MULTIVITAMIN 1 TABLET PO SCH (07:43)
[2018-10-27] MEDS: AZITHROMYCIN 500 MG TABLET PO SCH (07:43)
[2018-10-27] MEDS: FUROSEMIDE 20 MG TABLET PO SCH ×2 (07:43→18:27)
[2018-10-27] MEDS: THIAMINE 100MG TABLET PO SCH ×2 (07:43→21:08)
[2018-10-27] MEDS: FOLIC ACID 1 MG TABLET PO SCH (07:43)
[2018-10-27] MEDS: CALCIUM CARBONATE 500 MG TAB.CHEW PO SCH ×2 (07:43→21:08)
[2018-10-27 13:25] VITALS: BP 137/83
[2018-10-27 18:45] VITALS: BP 164/85
[2018-10-27] MEDS: NICOTINE 21 MG/24 HR PATCH.TD24 TD SCH (21:09)
[2018-10-27] MEDS: ENOXAPARIN 40 MG/0.4 ML SQ SCH (21:09)
[2018-10-27] MEDS ORDERED: DIPHENHYDRAMINE 12.5MG/5ML, 10ML UDC PO ONE (21:30)
[2018-10-27] MEDS ORDERED: DIPHENHYDRAMINE 50 MG CAPSULE PO ONE (22:00)
[2018-10-28 01:37] VITALS: BP 140/81
[2018-10-28] MEDS: ALBUTEROL/IPRATROPIUM 2.5MG/0.5MG, 3 ML NPPB SCH ×6 (02:33→23:00)
[2018-10-28 07:30] VITALS: BP 158/93
[2018-10-28] MEDS: THIAMINE 100MG TABLET PO SCH ×2 (10:23→21:31)
[2018-10-28] MEDS: AMOXICILLIN/CLAV 875-125MG TABLET PO SCH ×2 (10:23→21:31)
[2018-10-28] MEDS: methylPREDNISolone SOD SUCC 125 MG/2 ML IVPush SCH ×3 (10:23→21:54)
[2018-10-28] MEDS: MULTIVITAMIN 1 TABLET PO SCH (10:23)
[2018-10-28] MEDS: CALCIUM CARBONATE 500 MG TAB.CHEW PO SCH ×2 (10:23→21:31)
[2018-10-28] MEDS: GUAIFENESIN 200 MG TABLET PO SCH ×4 (10:23→21:31)
[2018-10-28] MEDS: FOLIC ACID 1 MG TABLET PO SCH (10:23)
[2018-10-28] MEDS: AZITHROMYCIN 500 MG TABLET PO SCH (10:23)
[2018-10-28] MEDS: FUROSEMIDE 20 MG TABLET PO SCH (10:24)
[2018-10-28 14:09] VITALS: BP 158/86
[2018-10-28] MEDS: FUROSEMIDE 40 MG TABLET PO SCH (16:40)
[2018-10-28 18:35] VITALS: BP 159/92
[2018-10-28] MEDS: ENOXAPARIN 40 MG/0.4 ML SQ SCH (21:31)
[2018-10-28] MEDS: NICOTINE 21 MG/24 HR PATCH.TD24 TD SCH (21:54)
[2018-10-29 01:59] VITALS: BP 156/99
[2018-10-29] MEDS: ALBUTEROL/IPRATROPIUM 2.5MG/0.5MG, 3 ML NPPB SCH ×6 (02:30→22:32)
[2018-10-29] MEDS: methylPREDNISolone SOD SUCC 125 MG/2 ML IVPush SCH ×3 (05:58→20:44)
[2018-10-29] MEDS: GUAIFENESIN 200 MG TABLET PO SCH ×4 (05:59→20:44)
[2018-10-29 06:56] VITALS: BP 150/94
[2018-10-29 08:33] LABS: ALANINE AMINOTRANSFERASE 44 U/L (12-78); ALBUMIN 3.4 g/dL (3.4-5.0); ANION GAP 4 mmol/L (5-15); CALCIUM 8.8 mg/dL (8.5-10.1); CHLORIDE 99 mmol/L (98-107); CREATININE 0.87 mg/dL (0.7-1.3)
[2018-10-29 08:35] LABS: ALKALINE PHOSPHATASE 72 U/L (45-117); BILIRUBIN,TOTAL 0.4 mg/dL (0.2-1.0); TOTAL PROTEIN 5.9 g/dL (6.4-8.2)
[2018-10-29] MEDS: THIAMINE 100MG TABLET PO SCH ×2 (08:39→20:44)
[2018-10-29] MEDS: FOLIC ACID 1 MG TABLET PO SCH (08:39)
[2018-10-29] MEDS: AZITHROMYCIN 500 MG TABLET PO SCH (08:40)
[2018-10-29] MEDS: FUROSEMIDE 40 MG TABLET PO SCH (08:40)
[2018-10-29] MEDS: AMOXICILLIN/CLAV 875-125MG TABLET PO SCH ×2 (08:40→20:44)
[2018-10-29] MEDS: MULTIVITAMIN 1 TABLET PO SCH (08:40)
[2018-10-29] MEDS: LISINOPRIL 10 MG TABLET PO SCH ×2 (09:07→20:44)
[2018-10-29] MEDS: CALCIUM CARBONATE 500 MG TAB.CHEW PO SCH ×2 (09:07→20:43)
[2018-10-29 13:05] VITALS: BP 148/89
[2018-10-29 19:55] VITALS: BP 157/89
[2018-10-29] MEDS: ENOXAPARIN 40 MG/0.4 ML SQ SCH (20:51)
[2018-10-29] MEDS: NICOTINE 21 MG/24 HR PATCH.TD24 TD SCH (20:52)
[2018-10-30 02:17] VITALS: BP 164/91
[2018-10-30] MEDS: ALBUTEROL/IPRATROPIUM 2.5MG/0.5MG, 3 ML NPPB SCH ×5 (02:40→19:20)
[2018-10-30 05:39] LABS: ANION GAP 6 mmol/L (5-15); CALCIUM 8.5 mg/dL (8.5-10.1); CHLORIDE 99 mmol/L (98-107)
[2018-10-30 05:42] LABS: ALANINE AMINOTRANSFERASE 41 U/L (12-78); ALKALINE PHOSPHATASE 63 U/L (45-117); BILIRUBIN,TOTAL 0.5 mg/dL (0.2-1.0); CREATININE 0.92 mg/dL (0.7-1.3); TOTAL PROTEIN 5.7 g/dL (6.4-8.2)
[2018-10-30] MEDS: GUAIFENESIN 200 MG TABLET PO SCH ×4 (06:15→20:20)
[2018-10-30 07:52] VITALS: BP 159/89
[2018-10-30] MEDS: methylPREDNISolone SOD SUCC 125 MG/2 ML IVPush SCH (09:34)
[2018-10-30] MEDS: THIAMINE 100MG TABLET PO SCH ×2 (09:34→20:20)
[2018-10-30] MEDS: AMOXICILLIN/CLAV 875-125MG TABLET PO SCH ×2 (09:35→20:20)
[2018-10-30] MEDS: AZITHROMYCIN 500 MG TABLET PO SCH (09:35)
[2018-10-30] MEDS: FOLIC ACID 1 MG TABLET PO SCH (09:36)
[2018-10-30] MEDS: MULTIVITAMIN 1 TABLET PO SCH (09:36)
[2018-10-30] MEDS: LISINOPRIL 20 MG TABLET PO SCH ×2 (09:36→20:20)
[2018-10-30 12:44] VITALS: BP 149/106
[2018-10-30] MEDS: FUROSEMIDE 20 MG TABLET PO SCH (14:07)
[2018-10-30 19:00] VITALS: BP 152/89
[2018-10-30] MEDS: NICOTINE 21 MG/24 HR PATCH.TD24 TD SCH (20:20)
[2018-10-30] MEDS: ENOXAPARIN 40 MG/0.4 ML SQ SCH (20:27)
[2018-10-31 02:10] VITALS: BP 147/84
[2018-10-31 05:16] LABS: BASOPHILS # (AUTO) 0.01 x10^3/uL (0-0.1); BASOPHILS % (AUTO) 0 % (0-1); EOSINOPHILS # (AUTO) 0.04 x10^3/uL (0-0.4); EOSINOPHILS % (AUTO) 1 % (1-7); LYMPHOCYTES # (AUTO) 0.74 x10^3/uL (1-3.4); LYMPHOCYTES % (AUTO) 12 % (22-44); MD NO; MEAN CORPUSCULAR HEMOGLOBIN 32.1 pg (27.5-34.5); MEAN CORPUSCULAR HGB CONC 32.7 g/dL (33.2-36.2); MEAN CORPUSCULAR VOLUME 98.1 fL (81-97); MEAN PLATELET VOLUME 8.7 fL (7.4-10.4); MONOCYTES # (AUTO) 0.57 x10^3/uL (0.2-0.8); MONOCYTES % (AUTO) 9 % (2-9); NEUTROPHILS # (AUTO) 5.05 x10^3/uL (1.8-6.8); NEUTROPHILS % (AUTO) 79 % (42-75); PLATELET COUNT 149 x10^3/uL (130-400); RED BLOOD COUNT 4.97 x10^6/uL (4.38-5.82); RED CELL DISTRIBUTION WIDTH 15.5 % (9.4-14.8)
[2018-10-31 05:38] LABS: ALBUMIN 3.1 g/dL (3.4-5.0); ANION GAP 6 mmol/L (5-15); CALCIUM 8.7 mg/dL (8.5-10.1); CHLORIDE 101 mmol/L (98-107)
[2018-10-31 05:42] LABS: ALANINE AMINOTRANSFERASE 40 U/L (12-78); ALKALINE PHOSPHATASE 67 U/L (45-117); BILIRUBIN,TOTAL 0.2 mg/dL (0.2-1.0); CREATININE 0.87 mg/dL (0.7-1.3); TOTAL PROTEIN 5.5 g/dL (6.4-8.2)
[2018-10-31] MEDS: GUAIFENESIN 200 MG TABLET PO SCH ×4 (05:42→21:25)
[2018-10-31] MEDS: ALBUTEROL/IPRATROPIUM 2.5MG/0.5MG, 3 ML NPPB SCH ×4 (06:50→19:32)
[2018-10-31 07:05] VITALS: BP 158/89
[2018-10-31] MEDS: AMOXICILLIN/CLAV 875-125MG TABLET PO SCH ×2 (08:21→21:25)
[2018-10-31] MEDS: FOLIC ACID 1 MG TABLET PO SCH (08:22)
[2018-10-31] MEDS: FUROSEMIDE 20 MG TABLET PO SCH (08:22)
[2018-10-31] MEDS: THIAMINE 100MG TABLET PO SCH ×2 (08:22→21:25)
[2018-10-31] MEDS: LISINOPRIL 20 MG TABLET PO SCH ×2 (08:22→21:25)
[2018-10-31] MEDS: MULTIVITAMIN 1 TABLET PO SCH (08:22)
[2018-10-31] MEDS: AZITHROMYCIN 500 MG TABLET PO SCH (08:22)
[2018-10-31 12:44] VITALS: BP 107/72
[2018-10-31 16:48] VITALS: BP 134/82
[2018-10-31 18:55] VITALS: BP 133/86
[2018-10-31] MEDS: ENOXAPARIN 40 MG/0.4 ML SQ SCH (21:00)
[2018-10-31] MEDS: NICOTINE 21 MG/24 HR PATCH.TD24 TD SCH (21:28)
[2018-11-01 03:20] VITALS: BP 167/95
[2018-11-01] MEDS: GUAIFENESIN 200 MG TABLET PO SCH ×4 (06:16→21:31)
[2018-11-01 07:06] VITALS: BP 152/98
[2018-11-01] MEDS: ALBUTEROL/IPRATROPIUM 2.5MG/0.5MG, 3 ML NPPB SCH ×5 (07:15→18:36)
[2018-11-01] MEDS: AMOXICILLIN/CLAV 875-125MG TABLET PO SCH ×2 (09:39→21:31)
[2018-11-01] MEDS: THIAMINE 100MG TABLET PO SCH ×2 (09:39→21:31)
[2018-11-01] MEDS: MULTIVITAMIN 1 TABLET PO SCH (09:39)
[2018-11-01] MEDS: AZITHROMYCIN 500 MG TABLET PO SCH (09:39)
[2018-11-01] MEDS: FOLIC ACID 1 MG TABLET PO SCH (09:39)
[2018-11-01] MEDS: LISINOPRIL 20 MG TABLET PO SCH ×2 (09:40→21:31)
[2018-11-01 12:52] VITALS: BP 126/79
[2018-11-01] MEDS: AMLODIPINE 5 MG TABLET PO SCH (13:53)
[2018-11-01 18:52] VITALS: BP 107/67
[2018-11-01] MEDS: ENOXAPARIN 40 MG/0.4 ML SQ SCH (21:00)
[2018-11-01] MEDS: NICOTINE 21 MG/24 HR PATCH.TD24 TD SCH (21:32)
[2018-11-02 01:35] VITALS: BP 119/66
[2018-11-02] MEDS: GUAIFENESIN 200 MG TABLET PO SCH ×2 (05:30→11:28)
[2018-11-02 06:57] VITALS: BP 151/93
[2018-11-02] MEDS: AMLODIPINE 5 MG TABLET PO SCH (08:05)
[2018-11-02] MEDS: AMOXICILLIN/CLAV 875-125MG TABLET PO SCH (08:05)
[2018-11-02] MEDS: FOLIC ACID 1 MG TABLET PO SCH (08:05)
[2018-11-02] MEDS: LISINOPRIL 20 MG TABLET PO SCH (08:06)
[2018-11-02] MEDS: THIAMINE 100MG TABLET PO SCH (08:06)
[2018-11-02] MEDS: MULTIVITAMIN 1 TABLET PO SCH (08:06)
[2018-11-02] MEDS ORDERED: ALBUTEROL/IPRATROPIUM 2.5MG/0.5MG, 3 ML NPPB SCH (09:00)
[2018-11-02] MEDS ORDERED: BUDE180A INH (11:38)
[2018-11-02] MEDS ORDERED: LISI-170 PO (11:38)
[2018-11-02] MEDS ORDERED: AMLO-150 PO (11:38)
[2018-11-02] MEDS ORDERED: ALBU18HF INH (11:38)
[2018-11-02] MEDS ORDERED: PRED10TA PO (11:38)
[2018-11-02 12:14] VITALS: BP 128/80
== END 2018-11-02 13:43 | disposition home or self-care (01) | DRG 193 ==
LOC: ED 14:44 → EDIP 16:43 → 3NE 18:04
PROVIDERS: ADMIT Internal Medicine; ATTEND Internal Medicine
DX: J18.9 Pneumonia, unspecified organism (principal); J96.21 Acute and chronic respiratory failure with hypoxia; J44.1 Chronic obstructive pulmonary disease with (acute) exacerbation; E87.1 Hypo-osmolality and hyponatremia; J44.0 Chronic obstructive pulmonary disease with (acute) lower respiratory infection; I50.30 Unspecified diastolic (congestive) heart failure; E87.3 Alkalosis; D75.89 Other specified diseases of blood and blood-forming organs; I11.0 Hypertensive heart disease with heart failure; I27.20 Pulmonary hypertension, unspecified; I77.819 Aortic ectasia, unspecified site; I07.1 Rheumatic tricuspid insufficiency; E83.51 Hypocalcemia; F17.210 Nicotine dependence, cigarettes, uncomplicated; Z88.0 Allergy status to penicillin; Z59.0 Homelessness
CPT/HCPCS: 36415; 71045; 71275; 80053; 80307; 83880; 84484; 85025; 85379; 87040; 87070; 87205; 93005; 93306; 93970; 94640; 99285; G0378; J1650; J7620; Q9967; J2930; J7512

== ENCOUNTER 2019-03-12 14:17 | Inpatient (IN) | payer MEDICARE, MEDICAID ==
[~2019-03-12] VITALS: Ht 195.6 cm; Wt 109.0 kg
[~2019-03-12 14:17] MED LIST changes: +ALBU18HF INH; +AMLO-150 PO; +BUDE180A INH; -GUAI200T3 PO; +GUAI200T37 PO; +LISI-170 PO
--- NOTE | 2019-03-12 14:48 | NUR ---
PER PT REQUEST, PLACED ON 1L NC IN LOBBY.
[2019-03-12] MEDS ORDERED: SODIUM CHLORIDE FLUSH 10ML SYR IVF ONE (16:30)
[2019-03-12 16:52] LABS: BASOPHILS # (AUTO) 0.02 x10^3/uL (0-0.1); BASOPHILS % (AUTO) 0 % (0-1); EOSINOPHILS # (AUTO) 0.14 x10^3/uL (0-0.4); EOSINOPHILS % (AUTO) 2 % (1-7); LYMPHOCYTES % (AUTO) 22 % (22-44); MD NO; MEAN CORPUSCULAR HEMOGLOBIN 33.3 pg (27.5-34.5); MEAN CORPUSCULAR HGB CONC 32.9 g/dL (33.2-36.2); MEAN PLATELET VOLUME 8.3 fL (7.4-10.4); MONOCYTES # (AUTO) 0.62 x10^3/uL (0.2-0.8); MONOCYTES % (AUTO) 10 % (2-9); NEUTROPHILS # (AUTO) 4.13 x10^3/uL (1.8-6.8); NEUTROPHILS % (AUTO) 66 % (42-75); PLATELET COUNT 198 x10^3/uL (130-400); RED BLOOD COUNT 5.01 x10^6/uL (4.38-5.82); RED CELL DISTRIBUTION WIDTH 14.3 % (9.4-14.8)
[2019-03-12 17:03] LABS: ALBUMIN 3.7 g/dL (3.4-5.0); ANION GAP 3 mmol/L (5-15); CHLORIDE 104 mmol/L (98-107)
[2019-03-12 17:08] LABS: ALANINE AMINOTRANSFERASE 29 U/L (12-78); ALKALINE PHOSPHATASE 91 U/L (45-117); BILIRUBIN,TOTAL 0.3 mg/dL (0.2-1.0); CREATININE 0.91 mg/dL (0.7-1.3); TOTAL PROTEIN 7.2 g/dL (6.4-8.2)
--- NOTE | 2019-03-12 17:37 | NUR ---
sales floor associate: pt to ed room 11 from lobby at this time
--- NOTE | 2019-03-12 18:01 | NUR ---
IN WITH PATIENT.
[2019-03-12] MEDS ORDERED: ALBUTEROL/IPRATROPIUM 2.5MG/0.5MG, 3 ML ONE (18:19)
[2019-03-12] MEDS ORDERED: ALBUTEROL/IPRATROPIUM 2.5MG/0.5MG, 3 ML NPPB ONE (18:30)
[2019-03-12] MEDS ORDERED: ASPIRIN 81 MG TABLET CHEW PO ONE (19:00)
[2019-03-12] MEDS ORDERED: methylPREDNISolone SOD SUCC 125 MG/2 ML ONE (19:00)
[2019-03-12] MEDS ORDERED: methylPREDNISolone SOD SUCC 125 MG/2 ML IVPush SCH (19:00)
[2019-03-12] MEDS ORDERED: ASPIRIN 81 MG TABLET CHEW ONE (19:00)
--- NOTE | 2019-03-12 19:11 | NUR ---
PT REPORTS NO MEDICATIONS AT HOME.
--- NOTE | 2019-03-12 20:12 | NUR ---
REPORT TO MIKE MONDRAGON
[2019-03-12] MEDS ORDERED: DOCUSATE 100 MG CAPSULE PO PRN (20:30)
[2019-03-12] MEDS ORDERED: PROMETHAZINE 25 MG/ML, 1ML IM PRN (20:30)
[2019-03-12] MEDS ORDERED: NITROGLYCERIN 0.4 MG BOTTLE (25 TABS) SL PRN (20:30)
[2019-03-12] MEDS ORDERED: ONDANSETRON ODT 4 MG PO PRN (20:30)
[2019-03-12] MEDS ORDERED: morphine SULFATE 10 MG/ML, 1ML IVPush PRN (20:30)
[2019-03-12] MEDS ORDERED: POLYETHYLENE GLYCOL 17 GM PACKET PO PRN (20:30)
[2019-03-12] MEDS ORDERED: BISACODYL 10 MG SUPP PR PRN (20:30)
[2019-03-12] MEDS ORDERED: hydrALAzine 20 MG/ML, 1ML IVPush PRN (20:30)
[2019-03-12] MEDS ORDERED: OXYcodone IR 5MG TABLET PO PRN (20:30)
[2019-03-12] MEDS ORDERED: ONDANSETRON 2MG/ML, 2ML IVPush PRN (20:30)
[2019-03-12] MEDS ORDERED: LORazepam 2 MG/ML, 1ML IV PRN ×5 (20:30)
[2019-03-12] MEDS ORDERED: LORazepam 1MG TABLET PO PRN ×4 (20:30)
[2019-03-12] MEDS ORDERED: LORazepam 0.5MG TABLET PO PRN (20:30)
--- NOTE | 2019-03-12 20:38 | NUR ---
RECEIVED BEDSIDE REPORT AND CARE FROM ISHAN MONDRAGON. PT IN RADIOLOGY AT THIS TIME. ISHAN MONDRAGON CALLED REPORT TO FLOOR RN, UPON RETURN FROM [facility], PT READY FOR TRANSPORT TO FLOOR.
[2019-03-12 20:43] VITALS: BP 143/104
[2019-03-12 20:47] LABS: HEMOGLOBIN A1C 5.2 % (4.2-6.3)
--- NOTE | 2019-03-12 20:55 | NUR ---
PT BACK FROM [facility], NAD NOTED. PT TRANSPORTED TO FLOOR AT THIS TIME WITH ALL BELONGINGS. VSS AT TIME OF TRANSFER.
[2019-03-12] MEDS ORDERED: ALBUTEROL/IPRATROPIUM 2.5MG/0.5MG, 3 ML NPPB PRN (21:00)
[2019-03-12] MEDS: BUDESONIDE 0.5 MG/2 ML INHA HHN SCH (21:00)
[2019-03-12 21:04] LABS: FREE T4 (FREE THYROXINE) 0.79 ng/dL (0.76-1.46)
[2019-03-12] MEDS: HEPARIN 5,000 UNITS/ML, 1ML SQ SCH (21:13)
[2019-03-12] MEDS: methylPREDNISolone SOD SUCC 125 MG/2 ML IVPush SCH (21:13)
[2019-03-12] MEDS: DOXYCYCLINE 100 MG in DEXTROSE 5% 250 ML IV SCH (21:13)
[2019-03-12] MEDS: LISINOPRIL 20 MG TABLET PO SCH (21:14)
[2019-03-12] MEDS: NICOTINE 14MG/24 HR PATCH.TD24 TD SCH (21:14)
[2019-03-12 22:00] VITALS: BP 109/68
[2019-03-12] MEDS: THIAMINE 200 MG, MVI ADULT 10 ML, FOLIC ACID 1 MG in D5%-0.9% NACL 1,000 ML IV SCH (23:00)
[2019-03-13 00:33] LABS: TROPONIN I < 0.015 ng/mL (0.000-0.045)
[2019-03-13 01:43] VITALS: BP 143/82
[2019-03-13] MEDS: methylPREDNISolone SOD SUCC 125 MG/2 ML IVPush SCH ×4 (03:07→20:57)
[2019-03-13 04:01] LABS: ALANINE AMINOTRANSFERASE 23 U/L (12-78); ALBUMIN 3.1 g/dL (3.4-5.0); ANION GAP 5 mmol/L (5-15); CALCIUM 8.1 mg/dL (8.5-10.1); CHLORIDE 109 mmol/L (98-107); CHOLESTEROL, TOTAL 171 mg/dL (140-239); CREATININE 0.82 mg/dL (0.7-1.3)
[2019-03-13 04:03] LABS: ALKALINE PHOSPHATASE 83 U/L (45-117); BILIRUBIN,TOTAL 0.2 mg/dL (0.2-1.0); HDL CHOL % 25 % (26-37); HDL CHOLESTEROL (DIRECT) 43 mg/dL (40-60); LDL CHOLESTEROL,CALCULATED 106 mg/dL (54-169); LDL/HDL RATIO 2.5 (0.5-3.0); TOTAL PROTEIN 6.1 g/dL (6.4-8.2); TRIGLYCERIDES 108 mg/dL (50-200); VLDL CHOLESTEROL 22 mg/dL (0-25)
[2019-03-13 04:06] LABS: TROPONIN I < 0.015 ng/mL (0.000-0.045)
[2019-03-13 04:23] LABS: BASOPHILS # (AUTO) 0.01 x10^3/uL (0-0.1); BASOPHILS % (AUTO) 0 % (0-1); EOSINOPHILS % (AUTO) 0 % (1-7); LYMPHOCYTES # (AUTO) 0.47 x10^3/uL (1-3.4); LYMPHOCYTES % (AUTO) 14 % (22-44); MD SCAN; MEAN CORPUSCULAR HEMOGLOBIN 33.1 pg (27.5-34.5); MEAN CORPUSCULAR HGB CONC 32.8 g/dL (33.2-36.2); MEAN CORPUSCULAR VOLUME 101.1 fL (81-97); MEAN PLATELET VOLUME 8.6 fL (7.4-10.4); MONOCYTES # (AUTO) 0.07 x10^3/uL (0.2-0.8); MONOCYTES % (AUTO) 2 % (2-9); NEUTROPHILS # (AUTO) 2.95 x10^3/uL (1.8-6.8); NEUTROPHILS % (AUTO) 84 % (42-75); PLATELET COUNT 163 x10^3/uL (130-400); RED BLOOD COUNT 4.53 x10^6/uL (4.38-5.82); RED CELL DISTRIBUTION WIDTH 14.5 % (9.4-14.8)
[2019-03-13] MEDS: ASPIRIN 325 MG TABLET EC PO SCH (06:05)
[2019-03-13] MEDS: HEPARIN 5,000 UNITS/ML, 1ML SQ SCH ×3 (06:05→20:58)
[2019-03-13 08:58] VITALS: BP 136/80
[2019-03-13] MEDS: BUDESONIDE 0.5 MG/2 ML INHA HHN SCH ×2 (09:00→21:00)
[2019-03-13] MEDS: DOXYCYCLINE 100 MG in DEXTROSE 5% 250 ML IV SCH ×2 (09:51→20:57)
[2019-03-13] MEDS: LISINOPRIL 20 MG TABLET PO SCH ×2 (09:51→20:58)
[2019-03-13] MEDS: THIAMINE 200 MG, MVI ADULT 10 ML, FOLIC ACID 1 MG in D5%-0.9% NACL 1,000 ML IV SCH (09:52)
[2019-03-13 14:14] VITALS: BP 173/89
[2019-03-13] MEDS: ACETAMINOPHEN 325 MG TABLET PO PRN (20:58)
[2019-03-13] MEDS: NICOTINE 14MG/24 HR PATCH.TD24 TD SCH (20:58)
[2019-03-13 21:19] VITALS: BP 169/90
[2019-03-14] VITALS (7 sets, daily range): BP systolic 122–185; BP diastolic 66–108
[2019-03-14] MEDS: methylPREDNISolone SOD SUCC 125 MG/2 ML IVPush SCH ×3 (03:25→14:19)
[2019-03-14] MEDS: ASPIRIN 325 MG TABLET EC PO SCH (05:53)
[2019-03-14] MEDS: HEPARIN 5,000 UNITS/ML, 1ML SQ SCH ×2 (05:53→14:19)
[2019-03-14 06:03] LABS: CHLORIDE 108 mmol/L (98-107)
[2019-03-14 06:05] LABS: BASOPHILS % (AUTO) 0 % (0-1); EOSINOPHILS # (AUTO) 0.03 x10^3/uL (0-0.4); EOSINOPHILS % (AUTO) 1 % (1-7); LYMPHOCYTES # (AUTO) 0.52 x10^3/uL (1-3.4); LYMPHOCYTES % (AUTO) 7 % (22-44); MD NO; MEAN CORPUSCULAR HEMOGLOBIN 33.2 pg (27.5-34.5); MEAN CORPUSCULAR HGB CONC 32.6 g/dL (33.2-36.2); MEAN CORPUSCULAR VOLUME 101.7 fL (81-97); MEAN PLATELET VOLUME 8.8 fL (7.4-10.4); MONOCYTES # (AUTO) 0.27 x10^3/uL (0.2-0.8); MONOCYTES % (AUTO) 4 % (2-9); NEUTROPHILS # (AUTO) 6.47 x10^3/uL (1.8-6.8); NEUTROPHILS % (AUTO) 89 % (42-75); PLATELET COUNT 170 x10^3/uL (130-400); RED BLOOD COUNT 4.42 x10^6/uL (4.38-5.82); RED CELL DISTRIBUTION WIDTH 14.1 % (9.4-14.8)
[2019-03-14 06:11] LABS: ALBUMIN 3.2 g/dL (3.4-5.0); ANION GAP 3 mmol/L (5-15); CALCIUM 8.6 mg/dL (8.5-10.1); CREATININE 0.72 mg/dL (0.7-1.3)
[2019-03-14] MEDS: DOXYCYCLINE 100 MG in DEXTROSE 5% 250 ML IV SCH (08:24)
[2019-03-14] MEDS: LISINOPRIL 20 MG TABLET PO SCH (08:24)
[2019-03-14] MEDS: ACETAMINOPHEN 325 MG TABLET PO PRN (08:39)
[2019-03-14] MEDS: BUDESONIDE 0.5 MG/2 ML INHA HHN SCH (09:00)
[2019-03-14] MEDS ORDERED: REGADENOSON 0.4 MG/5 ML SYRINGE ONE (09:02)
[2019-03-14] MEDS: THIAMINE 200 MG, MVI ADULT 10 ML, FOLIC ACID 1 MG in D5%-0.9% NACL 1,000 ML IV SCH (12:42)
[2019-03-14] MEDS ORDERED: LABETALOL 5 MG/ML SYR. (IV ONLY) IVPush PRN (16:30)
== END 2019-03-14 18:55 | disposition home or self-care (01) | DRG 190 ==
LOC: ED 18:39 → EDIP 18:40 → ED 18:45 → 5SO 20:29
PROVIDERS: ADMIT Internal Medicine; ATTEND Family Medicine
DX: J44.1 Chronic obstructive pulmonary disease with (acute) exacerbation (principal); J96.20 Acute and chronic respiratory failure, unspecified whether with hypoxia or hypercapnia; I50.32 Chronic diastolic (congestive) heart failure; I11.0 Hypertensive heart disease with heart failure; I07.1 Rheumatic tricuspid insufficiency; I27.20 Pulmonary hypertension, unspecified; F17.200 Nicotine dependence, unspecified, uncomplicated; F10.10 Alcohol abuse, uncomplicated; Y90.9 Presence of alcohol in blood, level not specified
CPT/HCPCS: 36415; 71045; 78452; 80053; 80061; 80069; 82607; 83036; 83735; 84439; 84443; 84484; 85025; 93005; 93017; 94640; 96374; G0378; J1644; J2785; J3411; J7042; J7060; J7620; J7626; A9502; C9898; J0360; J2930

== ENCOUNTER 2020-08-07 10:51 | Emergency (ER) | payer MEDICARE, MEDICAID ==
[~2020-08-07] VITALS: Ht 193 cm; Wt 129.3 kg
[~2020-08-07 10:51] MED LIST changes: -FOLI-17 PO; +FOLI1TAB32 PO; -NICO-487 TD; +NICO-587 TD
[2020-08-07 11:02] VITALS: BP 162/107
--- NOTE | 2020-08-07 12:07 | NUR ---
RING REMOVED BY INSOLE TAPER. CHART UP FOR RECHECK.
== END 2020-08-07 12:28 | disposition home or self-care (01) ==
LOC: ED 12:27
DX: S60.351A Superficial foreign body of right thumb, initial encounter (principal); I10 Essential (primary) hypertension; J44.9 Chronic obstructive pulmonary disease, unspecified; W49.04XA Ring or other jewelry causing external constriction, initial encounter; Y93.89 Activity, other specified; Y92.89 Other specified places as the place of occurrence of the external cause; Y99.8 Other external cause status
CPT/HCPCS: 99281